=== PATIENT | male | born 1970 | race Caucasian/White ===

== ENCOUNTER 2021-05-15 10:46 | Emergency (ER) | payer OTHER ==
[~2021-05-15] VITALS: Ht 182.9 cm; Wt 71.3 kg
[2021-05-15] MEDS ORDERED: METFORMIN HCL500 MG PO (16:35)
--- NOTE | 2021-05-16 14:35 | CONS ---
[facility] [address], [place] [address] Signed DATE OF CONSULTATION: REQUESTING PHYSICIAN: Dr. Palomino. PROBLEM: Incidental findings on CT scan of gallstones and thickened appendix. HISTORY: This 50-year-old white man, who is a prisoner at [facility]. He presented to the emergency room today upon referral from the infirmary at the [place] [facility] with elevated glucose. His glucose level was elevated higher than 500. Interventions under the direction of Dr. Palomino has brought his blood sugar down to 300. The patient has been noted to have had a progressive weight loss of at least 20 pounds for reasons that are uncertain. The patient does describe no change in his appetite and has been eating well overall. On the basis of his weight loss issues, Dr. Palomino ordered a CT scan of the abdomen. This demonstrated a large calcified gallstone in the gallbladder, but without acute inflammation and more notably a thickened appendix without obvious fecalith and some periappendiceal fluid and some thickening of the appendiceal wall. On that basis, consultation is recommended. The patient has no complaints of right lower abdominal pain or right upper abdominal pain. He has no postprandial nausea or vomiting. The patient was noted additionally to have somewhat enlarged prostate on CT scan, but denies any specific urinary problems, currently. FAMILY HISTORY: Negative for colon cancer. The patient denies any other particular ongoing problems, though does admit to having discontinued his metformin as he thought that was impairing his maintenance of weight. Quite obviously being off the metformin has not been beneficial to the blood glucose level. REVIEW OF SYSTEMS: He denies any shortness of breath or chest pain. He has had no hematemesis or blood per rectum. Denies any pain whatsoever. Denies postprandial nausea or vomiting. PHYSICAL EXAMINATION: GENERAL: Relatively thin white man with apparent galicia. Trachea is midline. CHEST: Clear. HEART: Regular without murmur. ABDOMEN: Scaphoid and soft. There is no evidence of ascites. Palpation both deep and Electronically Signed By: DAY VELARDE MD 05/16/21 1435 PATIENT NAME: DEONNA DE GUZMAN CONSULTATION DATE OF : 70 REPORT #: [id number] PHYSICIAN: DAY VELARDE MD PCP: ROXANA BEARD MD REPORT IS CONFIDENTIAL AND NOT TO BE RELEASED WITHOUT AUTHORIZATION [facility] [address], [place] [address] Signed superficial reveals no abdominal tenderness. No focal mass. No ascites. No other abnormality. EXTREMITIES: Showed no clubbing, cyanosis, or edema. LABORATORY STUDIES: Showed normal white count, somewhat elevated alkaline phosphatase, but other liver enzymes are normal. I have reviewed the CT scan with Dr. Jon, radiologist, and the aforementioned abnormalities are well noted. ASSESSMENT: He does not appear to have clinical evidence of acute cholecystitis or acute appendicitis. It is uncertain the etiology of his weight loss; the possibility of a diabetes-related condition leading to weight loss is also considered. It is notable that he has been managed only with metformin previously. It is uncertain his baseline glucose level. It is well known that gallstones without symptoms are not an indication for cholecystectomy; it is also acknowledged that if suspicion of visceral neuropathy exists that cholecystectomy for gallstones that are not symptomatic is reasonably performed in diabetic patients. Specifically, diabetic patients can have visceral neuropathy to the point that the only manifestation of the acute problem is hyperglycemia. In his case, cessation of his metformin is a more likely contributor to that problem. As regards the appendix, there was no specific finding of neoplasm proper. Certainly, appendiceal carcinoma can exist and contribute to weight loss problem particularly if advance. There is no sign of regional adenopathy nor actual tumor mass of the appendix and the liver appears normal and free of neoplastic change as well. I have reviewed the options of management to the patient, which would include admission to the hospital for consideration of appendectomy and possible concurrent cholecystectomy versus control of his blood glucose from a medical perspective ongoing as an outpatient at [facility] with followup in my [place] [facility] clinic in few weeks as anticipated. Alternatively of course if he should start to develop symptoms of right upper abdominal or right lower quadrant pain or nausea or vomiting or other phenomenon associated with acute cholecystitis or acute appendicitis, then obviously could return to the emergency room to be re-evaluated and progress as described. The patient strongly prefers to simply go back to [facility] and avoid operation if possible. Under the circumstances, I think that is reasonable. We are mindful that the Electronically Signed By: DAY VELARDE MD 05/16/21 1435 PATIENT NAME: DEONNA DE GUZMAN CONSULTATION DATE OF : 70 REPORT #: [id number] PHYSICIAN: DAY VELARDE MD PCP: ROXANA BEARD MD REPORT IS CONFIDENTIAL AND NOT TO BE RELEASED WITHOUT AUTHORIZATION [facility] [address] [place] [id number] Signed progression of either process could occur for which surgical intervention would be more strongly indicated. MD IJEOMA Yee/MODL /[id number] cc: MD Kishore JACOBO MD EOCI Copies: ~ Electronically Signed By: DAY VELARDE MD 05/16/21 1435 PATIENT NAME: DEONNA DE GUZMAN CONSULTATION DATE OF : 70 REPORT #: [id number] PHYSICIAN: DAY VELARDE MD PCP: ROXANA BEARD MD REPORT IS CONFIDENTIAL AND NOT TO BE RELEASED WITHOUT AUTHORIZATION
== END 2021-05-15 16:55 | disposition home or self-care (01) ==
LOC: ED 10:46
DX: E11.65 Type 2 diabetes mellitus with hyperglycemia (principal); R93.5 Abnormal findings on diagnostic imaging of other abdominal regions, including retroperitoneum
CPT/HCPCS: 71260; 74177; 80053; 81001; 82800; 83690; 85025; 99285-25; C9803; J1815; J7030; Q9967; U0003

== ENCOUNTER 2024-02-17 17:51 | Emergency (ER) | payer OTHER ==
[~2024-02-17] VITALS: Ht 182.9 cm; Wt 74.2 kg
[~2024-02-17 17:51] MED LIST: GLIPIZIDE ER10 MG PO; METFORMIN HCL500 M2 PO; METFORMIN HCL500 MG PO; PRECOSE25 MG PO; SEMGLEE (Y100 UNIT/1
[2024-02-17 18:15] LABS: BASOPHILS 0.6 % (0-2); EOSINOPHILS 3.7 % (0-6); HEMATOCRIT 42.4 % (35.0-50.0); HEMOGLOBIN 14.2 g/dL (12.0-18.0); LYMPHOCYTES 28.2 % (24-44); MCH 29.8 (27-36); MCHC 33.4 g/dl (30-36); MCV 89.2 fl (81-99); NEUTROPHILS 59.5 % (39-80); PLATELET COUNT 233 K/uL (140-440); RBC 4.75 M/ul (4.3-5.7); RDW 13.9 (10.5-15.0)
[2024-02-17 18:36] LABS: ALBUMIN 3.7 g/dL (3.4-5.0); ALBUMIN/GLOBULIN RATIO 1.37 (1.1-2.4); ANION GAP 10.8 (7-21); BILIRUBIN, TOTAL 0.3 ng/dL (0.2-1.0); BUN/CREATININE RATIO 19.73 (6.0-28.6); CALCIUM 9.2 mg/dL (8.5-10.1); CREATININE, SERUM 0.76 mg/dL (0.70-1.30); POTASSIUM 2.8 mmol/L (3.5-5.1); PROTEIN, TOTAL 6.4 g/dL (6.4-8.2)
[2024-02-17] MEDS ORDERED: POTASSIUM CHLORIDE 10 MEQ TABCR PO ONE (18:45)
[2024-02-17 19:40] VITALS: BP 114/77
== END 2024-02-17 19:40 | disposition home or self-care (01) ==
LOC: ED 17:51
PROVIDERS: Emergency Medicine
DX: E11.649 Type 2 diabetes mellitus with hypoglycemia without coma (principal); I10 Essential (primary) hypertension; E78.5 Hyperlipidemia, unspecified; Z79.84 Long term (current) use of oral hypoglycemic drugs; Z79.4 Long term (current) use of insulin
CPT/HCPCS: 36415; 80053; 85025; 99285; A9270